=== PATIENT | male | born 1955 | race Caucasian/White ===

== ENCOUNTER 2019-04-17 10:47 | Inpatient (IN) | payer MEDICARE, OTHER ==
--- NOTE | 2019-04-17 11:11 | RAD ---
PORTABLE CHEST: Date: 04/17/19 HISTORY: Chest pain. FINDINGS: Heart size appears slightly enlarged. Postop sternotomy changes are seen. Lungs are clear of any infi ltrative process. IMPRESSION: Minimal cardiomegaly. POS: TPC
[2019-04-17] MEDS ORDERED: ISOVUE-370 76%-LOCM 1 ML ONE (11:16)
[2019-04-17 11:23] LABS: #Eosinphils 0.5 thou/uL (0.0-0.7); #Lymphocytes 1.7 thou/uL (1.20-3.40); #Monocytes 0.3 thou/uL (0.11-0.59); #Neutrophils 2.8 thou/uL (1.40-6.50); %Basophils 0.7 % (0.0-1.0); %Eosinophils 8.6 % (0.0-10.0); %Lymphocytes 31.8 % (21.0-51.0); %Monocytes 6.1 % (0.0-10.0); %Neutrophils 52.8 % (42.0-75.0); Hemoglobin 13.1 g/dL (14.0-18.0); Mean Corpuscular HGB CONC 35.2 g/dL (32.0-36.0); Mean Corpuscular Hemoglobin 32.4 pg (27.0-31.0); Mean Corpuscular Volume 92.1 fL (78.0-98.0); Mean Platelet Volume 6.3 fL (7.4-10.4); Platelet Count 209 thou/uL (130-400); RBC Distribution Width 12.5 % (11.5-14.5); Red Blood Cell (RBC) Count 4.03 mill/uL (4.70-6.10); White Blood Cell (WBC) Count 5.4 thou/uL (4.8-10.8)
[2019-04-17 11:46] LABS: ALT (SGPT) 37 U/L (8-55); AST (SGOT) 26 U/L (5-34); Albumin 4.3 g/dL (3.4-4.8); Alkaline Phosphatase 131 U/L (40-150); Anion Gap 14 mmol/L (10-20); BUN (Urea Nitrogen) 16 mg/dL (8.4-25.7); Bilirubin, Total 0.7 mg/dL (0.2-1.2); CK (CPK) 41 U/L (30-200); Calc. Creatinine Clearance 0 mL/min (70-130); Calcium 9.6 mg/dL (7.8-10.44); Carbon Dioxide 24 mmol/L (23-31); Chloride 102 mmol/L (98-107); Estimated GFR-MDRD 79; Glucose 155 mg/dL (80-115); Potassium 4.4 mmol/L (3.5-5.1); Protein, Total 7.3 g/dL (5.8-8.1); Sodium 136 mmol/L (136-145)
--- NOTE | 2019-04-17 12:21 | CT ---
CT arteriogram chest with IV contrast and 3-D imaging HISTORY: Chest pain. Dyspnea. FINDINGS: There is good contrast opacification of the pulmonary arteries and thoracic aorta with norm al origin of the great vessels at the aortic arch. Arterial calcification is present within the chest and abdomen. Postoperative changes consistent with prior CABG. No pleural fluid, pneumothorax, or mediastinal adenopathy. Tiny nonspecific subpleural nodule noted within the left lower lobe. IMPRESSION: No CT evidence of pulmonary embolus. Atherosclerosis.
[2019-04-17] MEDS ORDERED: Bisacodyl 5 MG TAB PO PRN (13:12)
[2019-04-17] MEDS ORDERED: Ondansetron PF 4 MG/2 ML Vial IVP PRN (13:12)
[2019-04-17] MEDS ORDERED: Senokot S 8.6-50 MG TAB PO PRN (13:12)
[2019-04-17] MEDS ORDERED: Zolpidem Tartrate 5 MG TAB PO PRN (13:12)
[2019-04-17 14:30] VITALS: BMI 29.6
[2019-04-17 15:29] LABS: Troponin I 0.058 ng/mL (< 0.028)
--- NOTE | 2019-04-17 17:26 | HP ---
CHIEF COMPLAINT: Tachycardia and bradycardia. HISTORY OF PRESENT ILLNESS: Mr. Coelho is a very pleasant 63-year-old white gentleman, who comes to the hospital for palpitations. He was seen in the ER and was found to have episodes where his heart rate which is dipped to the 40s. He would feel tired and fatigued at that time and it would just pick back up to the 60s and then he was being discharged for followup, and before he got discharged, he had a small run of what appeared to be rapid AFib, heart rate in the 140s and he felt lightheaded, presyncopal, and so he was kept over. Cardiology was consulted. On my evaluation, Mr. Coelho has these runs of AFib, and on the monitor, he continues to have dips in his heart rates down to the 40s and he becomes lightheaded and symptomatic with them. They were very brief, they last about 5-10 seconds, and then they get better. He has not passed out, but has felt close to passing out. He was admitted originally on 03/18, and had a stress test that was abnormal. Heart catheterization showed multivessel disease and he actually underwent coronary artery bypass grafting by Dr. Kenny. He had a WEINSTEIN to the LAD, vein graft to a diagonal, and a vein graft to an OM. He did well postoperatively, but he did not have any atrial fibrillation postoperatively. He was discharged home. He did try to go to cardiac rehab, but this was not something that he liked as he could do a lot more than what is offered. So, he started doing his physical therapy at home. Currently, Mr. Coelho has no chest pain, tightness, or pressure and no shortness of breath. PAST MEDICAL HISTORY: 1. Coronary artery disease. 2. Hyperlipidemia. 3. Hypertension. 4. Type 2 diabetes. SURGICAL HISTORY: 1. Multiple stents placed in the past. 2. Tonsillectomy. 3. CABG x3 as above. SOCIAL HISTORY: No tobacco. No drugs. Social alcohol use. MEDICATIONS: Outpatient medications from recent discharge include: 1. Lysine 1000 mg a day. 2. Famotidine. 3. [place]-3 fish oil. 4. CoQ10. 5. Glyburide 10 mg b.i.d. 6. Lisinopril 5 mg a day. 7. Metformin 1000 mg b.i.d. 8. Atorvastatin 40 mg nightly. He has not been taking the beta-abdulaziz. ALLERGIES: 1. DULAGLUTIDE. 2. HYDROCODONE. REVIEW OF SYSTEMS: A 12-point review of systems was done and was all negative unless stated in the history of present illness. PHYSICAL EXAMINATION: VITAL SIGNS: Temperature 98.2, pulse 69, respiratory rate 18, saturation 99% on room air, and blood pressure 129/70. GENERAL: Awake, alert, and oriented x3, in no distress. HEENT: Normocephalic and atraumatic. NECK: Supple. LUNGS: Clear. CARDIOVASCULAR: S1 and S2. No S3 or S4. No murmurs. No gallops. ABDOMEN: Soft. Positive bowel sounds. EXTREMITIES: Trace edema. SKIN: Warm and dry. LABORATORY DATA: Laboratory work was reviewed. CBC with white count of 5.4, hemoglobin of 13, hematocrit of 37, and platelet count 209. Chemistries unremarkable. Troponin is 0.01 and 0.05. Lipase was 41. CT angio of the chest showed no evidence of pulmonary embolism. Chest x-ray was unremarkable. ASSESSMENT AND PLAN: 1. Tachybrady syndrome. 2. Likely postoperative atrial fibrillation, very symptomatic. 3. Symptomatic sinus bradycardia. PLAN: 1. At this point, he has a Class I recommendation for pacemaker. We will plan on keeping him in the hospital. He has eaten today, so we cannot do it today. We will plan on doing this on Saturday. 2. Once his pacemaker is in place, we will plan on starting amiodarone at that time for his postoperative AFib. 3. We will continue all his home medications. 4. PPI for stress ulcer prophylaxis and Lovenox subcu for DVT prophylaxis. 5. Full code. 6. Disposition, pending placement of pacemaker. Job ID: [id number]
[2019-04-17 18:14] LABS: Troponin I 0.037 ng/mL (< 0.028)
[2019-04-17 22:37] LABS: Bilirubin Negative (Negative); Blood, Urine Negative (Negative); Clarity CLEAR (Clear); Glucose, Urine (Dipstick) Negative (Negative); Leukocyte Negative (Negative); Nitrite Negative (Negative); Protein, Urine (Dipstick) Negative (Neg-Trace); Urobilinogen 0.2 mg/dL (0.2-1.0)
[2019-04-17 22:44] LABS: Bacteria/HPF None Seen HPF (None Seen); Hyaline Casts/LPF 0-3 HYALINE CAST LPF (0-3 Hyaline); RBC/HPF 0-3 HPF (0-3); Squamous Epithelial None Seen HPF (0-3); WBC/HPF 0-3 HPF (0-3)
[2019-04-18 05:26] LABS: #Eosinphils 0.5 thou/uL (0.0-0.7); #Monocytes 0.4 thou/uL (0.11-0.59); #Neutrophils 2.9 thou/uL (1.40-6.50); %Basophils 0.6 % (0.0-1.0); %Lymphocytes 34.4 % (21.0-51.0); %Monocytes 6.7 % (0.0-10.0); %Neutrophils 49.3 % (42.0-75.0); Hemoglobin 12.7 g/dL (14.0-18.0); Mean Corpuscular HGB CONC 34.7 g/dL (32.0-36.0); Mean Corpuscular Hemoglobin 32.1 pg (27.0-31.0); Mean Corpuscular Volume 92.6 fL (78.0-98.0); Mean Platelet Volume 6.4 fL (7.4-10.4); Platelet Count 206 thou/uL (130-400); RBC Distribution Width 12.7 % (11.5-14.5); Red Blood Cell (RBC) Count 3.95 mill/uL (4.70-6.10); White Blood Cell (WBC) Count 5.8 thou/uL (4.8-10.8)
[2019-04-18 05:42] LABS: Anion Gap 14 mmol/L (10-20); BUN (Urea Nitrogen) 14 mg/dL (8.4-25.7); Calc. Creatinine Clearance 108 mL/min (70-130); Calcium 9.3 mg/dL (7.8-10.44); Carbon Dioxide 24 mmol/L (23-31); Chloride 104 mmol/L (98-107); Estimated GFR-MDRD 89; Glucose 90 mg/dL (80-115); Potassium 3.8 mmol/L (3.5-5.1); Sodium 138 mmol/L (136-145)
[2019-04-18] MEDS ORDERED: Midazolam HCl 2 mg/2 ml Vial ONE (08:56)
[2019-04-18] MEDS ORDERED: Enoxaparin Sodium 30 MG/0.3 ML SYRINGE SC SCH (09:00)
[2019-04-18] MEDS ORDERED: Midazolam HCl 2 mg/2 ml Vial IVP SCH (09:00)
[2019-04-18] MEDS ORDERED: Morphine 2 MG/ML SYRINGE SLOW IVP SCH (09:00)
[2019-04-18] MEDS ORDERED: Nitroglycerin 0.4 MG TAB (25 Tab Bottle) ONE (09:01)
[2019-04-18] MEDS ORDERED: Morphine 2 MG/ML SYRINGE SLOW IVP PRN (09:08)
[2019-04-18] MEDS ORDERED: Lisinopril 5 MG TAB PO SCH (09:15)
--- NOTE | 2019-04-18 18:09 | PDOC.CTH ---
Cardiology Progress Note - Subjective He had na episode this morning were his HR went up into the 200's, very symptomatic and was started on amiodarone. He then started to have several lows down to the 40's also very symptomatic with lightheadedness and presyncope so amiodarone had to be stopped. - Objective Vital Signs Temp Temp Pulse Pulse Pulse Pulse Pulse 04/18/19 15:17 97.7 F 04/18/19 11:14 98.4 F 04/18/19 10:43 66 04/18/19 09:45 04/18/19 08:51 97.9 F 203 H 193 H 187 H 89 04/18/19 07:46 97.9 F 66 Pulse Pulse Resp Resp Resp Resp Resp 04/18/19 15:17 04/18/19 11:14 04/18/19 10:43 04/18/19 09:45 04/18/19 08:51 79 85 26 H 26 H 22 H 22 H 04/18/19 07:46 18 Resp Resp BP BP BP BP BP 04/18/19 15:17 04/18/19 11:14 04/18/19 10:43 04/18/19 09:45 04/18/19 08:51 20 18 133/100 H 128/56 L 187/91 H 187/98 H 170/84 H 04/18/19 07:46 BP BP Pulse Ox Pulse Ox Pulse Ox Pulse Ox Pulse Ox 04/18/19 15:17 04/18/19 11:14 04/18/19 10:43 04/18/19 09:45 100 04/18/19 08:51 165/81 H 99 100 100 99 04/18/19 07:46 162/83 H 98 Weight 196 lb 3.2 oz 04/17/19 04/18/19 04/19/19 06:59 06:59 06:59 Intake Total 1170 Output Total 1845 Balance -675 - Physical Examination General/Neuro: alert & oriented x3, NAD Neck: no JVD present Lungs: unlabored respirations Heart: RRR Abdomen: NT/ND Extremities: other: (no edema) - Telemetry Telemetry Rhythm: NSR, SVT, S Olman - Labs Result Diagrams: 04/18/19 04:46 04/18/19 04:46 Troponin/CKMB Troponin I 0.037 ng/mL (< 0.028) H 04/17/19 17:35 - Assessment/Plan 1. Tachy/Olman syndrome 2. SVT 3. Paroxysmal afib 4. Recent CABG 1 month ago PLAN: - I spoke with Dr. Ghosh and she will come in to do PPM tomorrow. morning. - I spoke with Mr. Coelho and he agrees to proceed.
[2019-04-19] MEDS: Acetaminophen 325 MG TAB PO PRN ×2 (04:45→10:30)
[2019-04-19] MEDS ORDERED: Midazolam HCl 2 mg/2 ml Vial ONE (08:20)
[2019-04-19] MEDS ORDERED: CEFAZOLIN 1 GM VIAL ONE (08:20)
[2019-04-19] MEDS ORDERED: Gentamicin 80 MG/2 ML VIAL ONE (08:20)
[2019-04-19] MEDS ORDERED: Amiodarone 200 MG TAB PO SCH ×2 (10:07→10:30)
--- NOTE | 2019-04-19 10:29 | RAD ---
XR Chest 1 View Portable HISTORY: Pacemaker placement COMPARISON: 04/17/2019 study. FINDINGS: Heart size appears slightly enlarged with postop sternotomy change. There is been interval placement of a pacemaker. No signs of pneumothorax. The lungs are clear of infiltrates. IMPRESSION: Pacemaker placement. No signs of pneumothorax.
[2019-04-19] MEDS: Amiodarone 200 MG TAB PO SCH ×2 (10:31→20:37)
--- NOTE | 2019-04-19 10:50 | CON ---
DATE OF CONSULTATION: HISTORY OF PRESENT ILLNESS: Finn Coelho is a 63-year-old gentleman, status post recent CABG, who was admitted to the hospital with palpitation. His heart rate was 200, very symptomatic, started on amiodarone. It dropped him down to the 40s, very symptomatic, lightheaded, dizziness. Apparently, tachy-favio syndrome, SVT, paroxysmal atrial fibrillation, recent CABG. He had a pacemaker inserted in the MICU, is the reason for consult. He had a CT chest angiogram done, which showed no evidence of pulmonary emboli. On admission to the ER, his chest x-ray also showed recent CABG, but no acute infiltrates. The patient is a nonsmoker. No prior history of pneumonia or TB. This morning, he is complaining of significant pain in the sciatic. PAST MEDICAL HISTORY: Hypertension, diabetes, lipidemia, disease. PAST SURGICAL HISTORY: Multiple stents, tonsils, CABG. HABITS: Tobacco, none. Allergies, none. HOME MEDICATIONS: Includes, 1. Metformin 1000 b.i.d. 2. Glyburide 10 twice a day. 3. Lisinopril 5 a day. 4. Pepcid 20. 5. Atorvastatin 60. ALLERGIES: HYDROCODONE. REVIEW OF SYSTEMS: Full review of systems otherwise 10-point negative. PHYSICAL EXAMINATION: VITAL SIGNS: His saturations are 100% room air, temperature 98, blood pressure 154/85. CHEST: No wheezing or crackles. CARDIAC: Normal S1 and S2. No gallops. ABDOMEN: No masses. IMPRESSION: 1. Sick sinus syndrome, status post pacemaker. 2. Recent coronary artery bypass graft. 3. Sciatica pain. I am going to give him some gabapentin for his pain. Otherwise, continue supportive care. Disposition as per Cardiology. Job ID: [id number]
[2019-04-19] MEDS ORDERED: hydrALAZINE 20 MG/ML VIAL ONE (11:11)
--- NOTE | 2019-04-19 11:52 | PDOC.CTH ---
Cardiology Progress Note - Subjective He had his PPM this morning and it went well. - Objective Vital Signs Temp Pulse Ox 04/19/19 11:03 98.2 F 04/19/19 07:29 100 04/19/19 07:23 98.1 F 04/19/19 04:00 97.6 F 04/19/19 00:00 97.9 F Weight 196 lb 3.2 oz 04/18/19 04/19/19 04/20/19 06:59 06:59 06:59 Intake Total 1170 2920 Output Total 1845 2050 Balance -675 870 - Physical Examination General/Neuro: alert & oriented x3, NAD Neck: no JVD present Lungs: unlabored respirations Heart: RRR Abdomen: NT/ND Extremities: other: (no edema) - Telemetry Telemetry Rhythm: NSR - Labs Result Diagrams: 04/18/19 04:46 04/18/19 04:46 Troponin/CKMB Troponin I 0.037 ng/mL (< 0.028) H 04/17/19 17:35 - Assessment/Plan 1. Tachy/Olman syndrome 2. SVT 3. Paroxysmal afib 4. Recent CABG 1 month ago 5. S/P PPM placement. 6. HTN PLAN: - Amiodarone load with 400 mg BID for 10 days then 200 mg daily - EP consultation if he recurs. - Monitor in IMCU for now. - If he recurs will keep here for inpt EP consult for possible SVT ablation.
[2019-04-19] MEDS: Gabapentin 300 MG CAP PO SCH ×2 (16:45→20:38)
--- NOTE | 2019-04-20 09:02 | PRG ---
DATE OF SERVICE: 04/20/2019 SUBJECTIVE: This morning, he is awake, alert, responsive, no shortness of breath, less pain. OBJECTIVE: VITAL SIGNS: Saturations 90% on room air, blood pressure 153/86, respirations 18. CHEST: No wheezing or crackles. CARDIAC: Normal S1 and S2. No gallops. ABDOMEN: No masses. IMPRESSION: Status post supraventricular tachycardia, sick sinus syndrome, status post pacemaker, recent coronary artery bypass graft, sciatica. PLAN: Continue supportive care. Hopefully, home as per Cardiology. Job ID: [id number]
[2019-04-20] MEDS: Amiodarone 200 MG TAB PO SCH ×2 (09:32→19:28)
[2019-04-20] MEDS: Gabapentin 300 MG CAP PO SCH ×3 (09:32→19:28)
[2019-04-20 09:52] VITALS: BP 142/85
[2019-04-20] MEDS ORDERED: Adenosine 6 MG/2 ML VIAL ONE ×2 (12:51→13:00)
--- NOTE | 2019-04-20 18:03 | PDOC.CTH ---
Cardiology Progress Note - Subjective He had an episode of very symptomatic SVT this morning. He had a repeat episode this afternoon that required to get IV adenosine to break it. - Objective Vital Signs Temp Pulse Pulse BP BP Pulse Ox 04/20/19 15:36 97.8 F 04/20/19 11:15 98.6 F 04/20/19 09:32 96 84 142/85 H 141/80 H 04/20/19 07:53 99 04/20/19 07:16 98.3 F Weight 196 lb 3.2 oz 04/19/19 04/20/19 04/21/19 06:59 06:59 06:59 Intake Total 2920 900 Output Total 2050 725 Balance 870 175 - Physical Examination General/Neuro: alert & oriented x3, NAD Neck: no JVD present Lungs: CTA, unlabored respirations Heart: RRR Abdomen: NT/ND Extremities: other: (no edema) - Telemetry Telemetry Rhythm: NSR, SVT - Labs Result Diagrams: 04/18/19 04:46 04/18/19 04:46 Troponin/CKMB Troponin I 0.037 ng/mL (< 0.028) H 04/17/19 17:35 - Assessment/Plan 1. Tachy/Olman syndrome 2. SVT 3. Paroxysmal afib 4. Recent CABG 1 month ago 5. S/P PPM placement. 6. HTN PLAN: - Amiodarone load with 400 mg BID for 9 days then 200 mg daily - EP consultation for SVT. - 30 minutes critical care.
--- NOTE | 2019-04-20 22:06 | CON ---
DATE OF CONSULTATION: 04/20/2019 HISTORY OF PRESENT ILLNESS: I am seeing Mr. Coelho at our [facility] Step-down ICU as an electrophysiology compliance consultant. His problems are: 1. Recurrent arrhythmias. Wide-complex tachycardia, also narrow complex tachycardia with rapid rates up to 200 beats per minute, noted on monitor. 2. Episodic atrial flutter with variable AV conductions seen. 3. Had susteined SVT noted this afternoon at cycle lengths 360 milliseconds. 4. Tachy-favio syndrome, sick sinus syndrome, prompting a dual-chamber pacemaker implantation on 04/17/2019 with a [employer] device. 5. Nonsustained atrial fibrillation post operatively. 6. Coronary artery disease, multivessel, status post coronary bypass grafting surgery by Dr. Kenny with WEINSTEIN to LAD, SVG to diagonal and OM. 7. Risk factors including hypertension, hyperlipidemia, type 2 diabetes. ALLERGIES: DULOXETINE, HYDROCODONE. MEDICATIONS: At home include; 1. Lysine. 2. Famotidine. 3. [place]-3 fish oil supplements. 4. Coenzyme Q10. 5. Glyburide. 6. Lisinopril. 7. Metformin. 8. Lipitor. SUBJECTIVE: Mr. Coelho was admitted after episodes of palpitations. He was noted to have marked bradycardia with heart rates in 40s in the ER, has felt tired and fatigued, but then later developed atrial fibrillation with very rapid rates as per note. The episode was regular. Later on the monitor he did develop nonsustained atrial flutter episodes, but also very rapid narrow complex SVT, which progressed into wide-complex tachycardia at same rate at cycle lengths about 280 milliseconds. He states they were slower, but still very rapid tachyarrhythmias. The most recent of them . He continues to take amiodarone initiated on the 19 of April. Denies dizziness, or loss of consciousness. No stroke-like symptoms, neurological deficits, no fever, chills, cough. No PND or orthopnea. Rest of 12-point system otherwise unremarkable. OBJECTIVE: VITAL SIGNS: Blood pressure is 139/79, heart rate 74, respiratory rate 17, the patient is afebrile. GENERAL: He is alert, oriented man, in no apparent distress. NECK: Supple. Jugular veins not distended. CHEST: Coarse with crackles. HEART: Sounds are regular to rate and rhythm. No murmur or gallop. ABDOMEN: Benign. Bowel sounds positive. Extremities: Lower extremities without edema, clubbing, or cyanosis. Pulses are adequate. NEUROLOGIC: The patient is nonfocal. MUSCULOSKELETAL: Without joint swelling or deformities. SKIN: Without rash. Midsternal scar and left subclavian pacemaker insertion sites are healing adequately. DATABASE: EKG is reviewed. Initial EKG reveals sinus rhythm, rate of 64 beats per minute. The telemetry strips reveal atrial flutter with variable AV conduction. Also what seems like 1:1 AV tachycardia also noted. The most recent episode clearly demonstrates narrow complex SVT at a rate of 180 beats per minute with PVF seems to be following closely the QRS. ASSESSMENT AND PLAN: Mr. Coelho is a pleasant 63-year-old man with prior history of recurrent arrhythmias after recent bypass surgery. He may have short atrial fibrillation, but also had atrial flutter episodes documented, had significant bradycardia for which he underwent dual-chamber pacemaker implantation on the . Despite his tachyarrhythmic episodes continues, he was started on amiodarone on the , but still had an episode of supraventricular tachycardia, which though terminated with adenosine. We discussed a variety of arrhythmias he had including possible atrial fibrillation, atrial flutter and also a possible supraventricular tachycardia, has had aberrant conduction with supraventricular tachycardia or atrial flutter noted. He could have variety of atrial arrhythmias circuits, slow pathway modification or cavotricuspid isthmus ablation may be of help. We also discussed the potential future need for pulmonary venous isolation procedure, but I would hold off on that. Hence, the recent bypass surgery to allow for some recovery. He may or may not need amiodarone for suppression in the interim. At this point, we will continue rhythm suppression with initiated amiodarone, if necessary IV adenosine seems to be also helpful to terminate the arrhythmia. We discussed the procedure of EP study and ablation and the risks benefits associated with that including chance of infection, bleeding, recurrence, bradycardia and subsequent pacemaker dependency. We will schedule him a near date. Job ID: [id number] [facility]
--- NOTE | 2019-04-21 09:10 | PRG ---
DATE OF SERVICE: 04/21/2019 SUBJECTIVE: Finn Coelho, this morning, is doing better. No more pain. No shortness of breath. OBJECTIVE: VITAL SIGNS: Saturations are 98% on room air, temperature 99, blood pressure _120\72 and respirations 18. CHEST: No wheezing. CARDIAC: Normal S1 and S2. No gallops. ABDOMEN: No masses. IMPRESSION: 1. Status post coronary artery bypass grafting. 2. Status post supraventricular tachycardia. 3. Status post pacemaker. PLAN: The patient is scheduled for EP ablation study tomorrow. Disposition as per Cardiology. Pulmonary will follow while in the MICU. Job ID: [id number] MTDD
[2019-04-21] MEDS: Gabapentin 300 MG CAP PO SCH ×3 (09:23→20:43)
[2019-04-21] MEDS: Amiodarone 200 MG TAB PO SCH (09:23)
--- NOTE | 2019-04-21 13:02 | CCL ---
Date of procedure: 04/19/19 INDICATIONS FOR PROCEDURE: 63-year-old gentleman who is status post bypass surgery approximately one month ago who has developed tachy/favio syndrome with significant pauses and intermittent atrial fibrillation. He was advised to undergo dual chamber pacemaker insertion with atrial therapies. He was taken to the cardiac laborer pole crew where he underwent the procedure today without difficulties or complications. He was implanted with a dual chamber pacemaker from [employer] which is an MRI compatible device with also atrial therapies. An Advisa dual chamber pacemaker with two screw-in leads. One in the atrium and one in the ventricle. There were no difficulties or complications encountered. Pacemaker was set with the upper rate at 130 and the lower rate was set at 60. Note, the patient was given 2 mg of IV versed for the procedure and had a total sedation time of 28 minutes. Throughout the procedure he was monitored by an independent observer present for heart rate, blood pressure and O2 saturations, all of which remain stable throughout the procedure. SURI
--- NOTE | 2019-04-21 13:30 | PDOC.CTH ---
Cardiology Progress Note - Subjective EP PROGRESS NOTE: 04/21/19 Seen as follow up for SVT and atrial arrhythmias. Feels fair today. No cardiac complaints today - Objective Vital Signs Temp Pulse Ox 04/21/19 10:30 98.5 F 04/21/19 08:00 99 04/21/19 07:12 99.0 F 04/21/19 03:50 98.9 F Weight 192 lb 1 oz 04/20/19 04/21/19 04/22/19 06:59 06:59 06:59 Intake Total 900 2400 Output Total 725 600 Balance 175 1800 - Physical Examination General/Neuro: alert & oriented x3, NAD Neck: carotid US brisk, no JVD present Lungs: CTA, unlabored respirations Heart: PMI normal, RRR Abdomen: NT/ND, soft - Telemetry Telemetry Rhythm: SR - Labs Result Diagrams: 04/18/19 04:46 04/18/19 04:46 Troponin/CKMB Troponin I 0.037 ng/mL (< 0.028) H 04/17/19 17:35 - Assessment/Plan 1. Recurrent arrhythmias. Wide-complex tachycardia, also narrow complex tachycardia with rapid rates up to 200 beats per minute, noted on monitor. 2. Episodic atrial flutter with variable AV conductions seen. 3. SVT noted 04/20. cycle length 360 milliseconds. 4. Tachy-favio syndrome, sick sinus syndrome, -prompting a dual-chamber pacemaker implantation on 04/17/2019 with a [employer]tronic device. Device interrogation reviewed. Normal operation 5. Nonsustained atrial fibrillation post operatively. 6. Coronary artery disease, multivessel, status post coronary bypass grafting surgery by Dr. Kenny with WEINSTEIN to LAD, SVG to diagonal and OM. 7. CAD Risk factors including hypertension, hyperlipidemia, type 2 diabetes. NPO after MN for EPS and possible ablation for SVT and right atrial flutter tomorrow. He understands the potential risk for PPM lead dislodgment that can occur with EPS/ RFA following a recently implanted PPM. Discussed R/B/A and pt wished to proceed.
--- NOTE | 2019-04-21 18:30 | PDOC.CTH ---
Cardiology Progress Note - Subjective Doing well. No recurrence. Walking round without issues. - Objective Vital Signs Temp Pulse Ox 04/21/19 15:10 98.2 F 04/21/19 10:30 98.5 F 04/21/19 08:00 99 04/21/19 07:12 99.0 F Weight 192 lb 1 oz 04/20/19 04/21/19 04/22/19 06:59 06:59 06:59 Intake Total 900 2400 Output Total 725 600 Balance 175 1800 - Physical Examination General/Neuro: alert & oriented x3, NAD Neck: no JVD present Lungs: CTA, unlabored respirations Heart: RRR Abdomen: NT/ND Extremities: other: (no edema) - Telemetry Telemetry Rhythm: NSR - Labs Result Diagrams: 04/18/19 04:46 04/18/19 04:46 Troponin/CKMB Troponin I 0.037 ng/mL (< 0.028) H 04/17/19 17:35 - Assessment/Plan 1. Tachy/Olman syndrome 2. SVT 3. Paroxysmal afib, post op. 4. Atrial flutter with variable AV block. 5. Recent CABG 1 month ago 6. S/P PPM placement. 7. HTN PLAN: - For EP study and likely SVT and flutter ablation tomorrow. - Will need full anticoagulation on discharge.
[2019-04-22 07:19] LABS: #Eosinphils 0.8 thou/uL (0.0-0.7); #Lymphocytes 1.9 thou/uL (1.20-3.40); #Monocytes 0.4 thou/uL (0.11-0.59); #Neutrophils 2.7 thou/uL (1.40-6.50); %Basophils 0.8 % (0.0-1.0); %Eosinophils 13.1 % (0.0-10.0); %Lymphocytes 32.1 % (21.0-51.0); %Monocytes 6.8 % (0.0-10.0); %Neutrophils 47.2 % (42.0-75.0); Hemoglobin 13.9 g/dL (14.0-18.0); Mean Corpuscular HGB CONC 34.3 g/dL (32.0-36.0); Mean Corpuscular Hemoglobin 31.4 pg (27.0-31.0); Mean Corpuscular Volume 91.5 fL (78.0-98.0); Mean Platelet Volume 6.2 fL (7.4-10.4); Platelet Count 173 thou/uL (130-400); RBC Distribution Width 12.7 % (11.5-14.5); Red Blood Cell (RBC) Count 4.42 mill/uL (4.70-6.10); White Blood Cell (WBC) Count 5.8 thou/uL (4.8-10.8)
[2019-04-22 07:38] LABS: Anion Gap 15 mmol/L (10-20); BUN (Urea Nitrogen) 14 mg/dL (8.4-25.7); Calc. Creatinine Clearance 89 mL/min (70-130); Calcium 9.7 mg/dL (7.8-10.44); Carbon Dioxide 21 mmol/L (23-31); Chloride 102 mmol/L (98-107); Estimated GFR-MDRD 73; Glucose 225 mg/dL (80-115); Potassium 4.1 mmol/L (3.5-5.1); Sodium 134 mmol/L (136-145)
[2019-04-22] MEDS ORDERED: Heparin 10,000 UNITS/1 ML VIAL ONE (09:49)
--- NOTE | 2019-04-22 09:54 | PRG ---
DATE OF SERVICE: 04/22/2019 SUBJECTIVE: Finn Coelho, this morning, in no pain, no shortness of breath. OBJECTIVE: VITAL SIGNS: Saturations are 98% on room air, temperature 98, and blood pressure 156/62. GENERAL: No chest pain. No shortness of breath. No back pain. CHEST: Decreased breath sounds. No wheezing. CARDIAC: Normal S1 and S2. No gallops. ABDOMEN: No masses. LABORATORY DATA: Labs are unremarkable. IMPRESSION: Sick sinus, status post supraventricular tachycardia. PLAN: He is going for ablation today. Continue pain relief. Disposition as per Cardiology. Job ID: [id number]
[2019-04-22] MEDS ORDERED: Lidocaine 1% (PF) 30 ML VIAL ONE (10:04)
[2019-04-22] MEDS ORDERED: Fentanyl 100 MCG/2 ML VIAL ONE ×3 (10:07→13:43)
[2019-04-22] MEDS ORDERED: PROPOFOL 40 ML ONE (10:07)
[2019-04-22] MEDS ORDERED: Famotidine/PF 20 mg/2ml Vial ONE (10:07)
[2019-04-22] MEDS ORDERED: Propofol 500 MG/50 ML VIAL ONE (10:07)
[2019-04-22] MEDS ORDERED: Midazolam HCl 2 mg/2 ml Vial ONE (10:07)
[2019-04-22] MEDS ORDERED: Isoproterenol 0.2 MG/1 ML AMP ONE (10:56)
[2019-04-22] MEDS ORDERED: Promethazine HCl 25 MG/ML VIAL IM PRN (12:25)
[2019-04-22] MEDS ORDERED: Promethazine HCl 25 MG/ML VIAL SLOW IVP PRN (12:25)
[2019-04-22] MEDS ORDERED: Ondansetron HCl/PF 4 MG/2 ML Vial IVP PRN (12:25)
--- NOTE | 2019-04-22 13:16 | OP ---
DATE OF PROCEDURE: 04/22/2019 PROCEDURES PERFORMED: Electrophysiology study and radiofrequency ablation. REASON FOR PROCEDURE: Mr. Coelho is a 63-year-old man with prior history of coronary artery disease, recent coronary artery bypass grafting surgery, postop atrial fibrillation on transient amiodarone therapy despite of recently initiated amiodarone, the patient had both atrial flutter and AVNRT, which required adenosine for termination. He is here for EP study and possible ablation. DESCRIPTION OF PROCEDURE: The patient received propofol by Anesthesia specialist. After adequate level of sedation achieved, the left and right femoral venous areas were prepped, draped, and anesthetized using subcutaneous lidocaine. On the left side, a 6 and 8-[place]yr[place] sheaths were introduced through which a octapolar and decapolar catheter was advanced to the right atrium, right ventricle, His bundle , and also the CS position. Pacing mapping and recording were performed each location, following findings were noted. Baseline rhythm was sinus rhythm at 789 milliseconds RR interval, UT of 105, QRS 56, QT 375, AH 84, and HV 58 milliseconds. The AV Wenckebach cycle length was 360 milliseconds. Retrograde Wenckebach cycle length was also 360 milliseconds. Concentric retrograde VA conduction was seen. AV roberto ERP was measured to be 600/260 milliseconds. No definite jump was observed with this maneuver. On the other hand, very long slow pathway conduction was noted. Ventricular access to my testing was also performed with [address] train decrementing up to 3 ventricular extrastimuli to the refractory. Ventricular ERP was 400/220/180/180 milliseconds. With burst atrial pacing, we were able to induce a 1:1 tachycardia, to be typical for AV roberto reentrant tachycardia with very short VA conduction. The ventricular overdrive pacing did not entrain, but terminated tachycardia. This was during Isuprel administration. Also off Isuprel, atrial flutter was inducible with flutter cycle length of 230 milliseconds with clear VA dissociation - 220 AV conduction. At this point, the right femoral vein was accessed using ultrasound guidance and an 8-[place]yr[place] short sheath was introduced through which a Thermo[employer] SFST catheter was advanced to the right atrium. 3D map of the right atrium was performed with careful attention to avoid moving the recently implanted pacemaker leads. The His bundle and CS positions were clearly delineated. Cavotricuspid isthmus ablation was performed during proximal CS pacing. We were able to prolong the transisthmus time for 40 milliseconds to 150 milliseconds. Longest transisthmus time was measured adjacent to the ablation not suggestive of transisthmus block. Following that, slow pathway modification was also performed reducing the power to 20, then 30 [place]. Junctional beats were observed during the ablation and we were able to achieve no inducibility of the tachycardia. On Isuprel during the testing, neither the atrial flutter or the AVNRT was inducible. The post ablation AV Wenckebach cycle length was changed before Isuprel at 420 milliseconds. AV ERP was changed to 600/290 milliseconds. At the end of the case, cardiac silhouette did not significantly changed, suggest no evidence of pericardial effusion. The pacemaker lead was interrogated and adequate function was ascertained. Catheter was removed in the dental laboratory worker. Sheaths were pulled and manual pressure was applied. The patient tolerated the procedure. No complications noted. CONCLUSION: 1. 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 2. Successful slow pathway modification and cavotricuspid isthmus ablation performed, eliminating inducibility of these arrhythmias. 3. Normal HV interval pre and post ablation. 4. No evidence of accessory pathway. 5. No inducible ventricular arrhythmia with up to 4 ventricular extrastimuli. 6. Adequate pacemaker function. PLAN: 1. Continue monitoring for recurrent arrhythmia. 2. Consider short-term amiodarone if atrial fibrillation is seen, but at this point, continue tapering it off. Job ID: [id number] [facility]
[2019-04-22] MEDS ORDERED: Acetaminophen 325 MG TAB PO PRN (14:09)
[2019-04-22] MEDS ORDERED: Bisacodyl 5 MG TAB PO PRN (14:09)
[2019-04-22] MEDS ORDERED: Ondansetron PF 4 MG/2 ML Vial SLOW IVP PRN (14:10)
[2019-04-22] MEDS ORDERED: Senokot S 8.6-50 MG TAB PO PRN (14:11)
[2019-04-22] MEDS: Gabapentin 300 MG CAP PO SCH (14:52)
[2019-04-22 14:55] VITALS: TEMP 97.8
[2019-04-22] MEDS ORDERED: Gabapentin 300 MG CAP PO SCH (15:00)
[2019-04-23] MEDS ORDERED: Carvedilol 6.25 MG TAB PO SCH (08:00)
[2019-04-23] MEDS ORDERED: Aspirin 81 mg Enteric Coated Tablet PO SCH (09:00)
== END 2019-04-22 18:24 | disposition home or self-care (01) | DRG 243 ==
LOC: ERS 10:47 → 2NO 14:28 → IMCU/EMU 04-18 09:29
PROVIDERS: ADMIT Internal Medicine Cardiovascular Disease; ATTEND Internal Medicine Cardiovascular Disease
PROC: 0JH606Z Insertion of Pacemaker, Dual Chamber into Chest Subcutaneous Tissue and Fascia, Open Approach (ICD-10-PCS; principal; 2019-04-19)
PROC: 02H63JZ Insertion of Pacemaker Lead into Right Atrium, Percutaneous Approach (ICD-10-PCS; 2019-04-19)
PROC: 02HK3JZ Insertion of Pacemaker Lead into Right Ventricle, Percutaneous Approach (ICD-10-PCS; 2019-04-19)
PROC: 02583ZZ Destruction of Conduction Mechanism, Percutaneous Approach (ICD-10-PCS; 2019-04-22)
PROC: 4A023FZ Measurement of Cardiac Rhythm, Percutaneous Approach (ICD-10-PCS; 2019-04-22)
PROC: 4A0234Z Measurement of Cardiac Electrical Activity, Percutaneous Approach (ICD-10-PCS; 2019-04-22)
DX: I49.5 Sick sinus syndrome (principal); I48.92 Unspecified atrial flutter; I47.1 Supraventricular tachycardia; I48.0 Paroxysmal atrial fibrillation; I25.10 Atherosclerotic heart disease of native coronary artery without angina pectoris; E11.9 Type 2 diabetes mellitus without complications; E78.5 Hyperlipidemia, unspecified; Z95.1 Presence of aortocoronary bypass graft; I25.2 Old myocardial infarction; Z95.5 Presence of coronary angioplasty implant and graft; Z88.8 Allergy status to other drugs, medicaments and biological substances; Z79.01 Long term (current) use of anticoagulants
CPT/HCPCS: 33249; 36415; 36416; 71045; 71275; 76942; 80048; 80053; 81001; 82550; 83690; 84484; 85025; 93005; 93010; 93613; 93623; 93653; 93655; 93798; 99152; 99153; C1730; C1732; C1769; C1785; C1898; J0153; J0360; J0690; J1580; J1644; J1650; J2001; J2250; J2270; J2704; J3010; Q9966; S0028